=== PATIENT | male | born 1975 | race Caucasian/White ===

== ENCOUNTER → 2016-12-14 | Outpatient (REF) ==
[~2016-12-14] MED LIST: /DULO30CA; /LAMO20TA; AMBI10TA; GEOD60CA; KLON1TAB; LISI10TA4; XANA1TAB2
[2016-12-14 19:21] LABS: CRYSTALS, BODY FLUID NONE SEEN (NONE SEEN)
[2016-12-14 20:31] LABS: SYNOVIAL FLUID COLOR RED (YELLOW); WBC ADVIA BF 1.75; WBC CALC. BF 1750 cells/uL (0-20)
[2016-12-14 20:32] LABS: BF DIFF IF INDICATED? YES (NO); HCT SOURCE RT ELBOW; RBC ADVIA BF 0.08; RBC CALC. BF 80000 (< 10mm3 cells/uL)
[2016-12-14 22:10] LABS: CC BF DIFF EXAM CYTOCENTRIFUGE
== END ==
LOC: M LAB REF 18:13
DX: Z00.00 Encounter for general adult medical examination without abnormal findings (principal)

== ENCOUNTER 2018-07-03 00:51 | Emergency (ER) | payer OTHER, MEDICARE ==
[~2018-07-03] VITALS: Ht 177.8 cm; Wt 90.9 kg
[2018-07-03] MEDS ORDERED: SERO1TAB (01:31)
[2018-07-03] MEDS ORDERED: LISI40TA (01:31)
[2018-07-03] MEDS ORDERED: METO1TAB87 (01:31)
[2018-07-03] MEDS ORDERED: OMEP-221 (01:31)
[2018-07-03] MEDS ORDERED: DULO60CA35 (01:31)
[2018-07-03] MEDS ORDERED: PRAZ2CAP (01:31)
[2018-07-03 01:48] LABS: HEMOGLOBIN 14.8 g/dl (13.5-17.5); MEAN CORPUSCULAR HEMOGLOBIN 30.7 pg (27.0-33.0); MEAN CORPUSCULAR HGB CONC 35.2 g/dl (32.0-36.5); MEAN CORPUSCULAR VOLUME 87.1 fl (80.0-96.0); PLATELET COUNT, AUTOMATED 231 10^3/uL (150-450); RED BLOOD COUNT 4.82 10^6/uL (4.30-6.10); WHITE BLOOD COUNT 7.3 10^3/uL (4.0-10.0)
[2018-07-03 02:23] LABS: ACETAMINOPHEN LEVEL < 2.0 UG/ML (10.0-30.0); ALBUMIN 3.9 GM/DL (3.2-5.2); ALT/SGPT 35 U/L (12-78); BILIRUBIN,DIRECT 0.1 MG/DL (0.0-0.2); BILIRUBIN,TOTAL 0.4 MG/DL (0.2-1.0); BLOOD UREA NITROGEN 7 MG/DL (7-18); CALCIUM LEVEL 8.4 MG/DL (8.5-10.1); CARBON DIOXIDE LEVEL 23 MEQ/L (21-32); CHLORIDE LEVEL 103 MEQ/L (98-107); CREATININE FOR GFR 1.23 MG/DL (0.70-1.30); GLOMERULAR FILTRATION RATE > 60.0 (>60); GLUCOSE, FASTING 89 MG/DL (70-100); POTASSIUM SERUM 4.1 MEQ/L (3.5-5.1); SALICYLATE LEVEL 4.4 MG/DL (5.0-30.0); SODIUM LEVEL 137 MEQ/L (136-145); TOTAL PROTEIN 6.8 GM/DL (6.4-8.2)
[2018-07-03 02:48] LABS: AMPHETAMINES LEVEL URINE NEGATIVE (NEGATIVE); BARBITURATES URINE NEGATIVE (NEGATIVE); BENZODIAZEPINES URINE NEGATIVE (NEGATIVE); CANNABINOIDS URINE POSITIVE (NEGATIVE); COCAINE METABOLITE URINE NEGATIVE (NEGATIVE); METHADONE URINE NEGATIVE (NEGATIVE); OPIATES URINE NEGATIVE (NEGATIVE); PHENCYCLIDINE URINE NEGATIVE (NEGATIVE)
[2018-07-03 03:24] VITALS: BP 146/74
--- NOTE | 2018-07-03 13:24 | ECGEPIP ---
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
[2018-08-05] MEDS ORDERED: SIMV20TA2 PO (21:24)
[2018-08-06] MEDS ORDERED: LEVO25TA5 PO (15:45)
== END 2018-07-03 03:32 | disposition home or self-care (01) ==
LOC: M ED 00:51
DX: F43.0 Acute stress reaction (principal); F99 Mental disorder, not otherwise specified; F17.210 Nicotine dependence, cigarettes, uncomplicated; F12.10 Cannabis abuse, uncomplicated
CPT/HCPCS: 36415; 80048; 80076; 80307; 84443; 85027; 93005; 99284; G0480

== ENCOUNTER 2018-07-31 09:50 | Emergency (ER) | payer OTHER, MEDICARE | END 2018-07-31 11:21 | disposition home or self-care (01) | LOC: M ED 09:50 | DX: Z91.5 Personal history of self-harm (principal) | CPT/HCPCS: 99284 ==

== ENCOUNTER 2018-08-05 21:15 | Emergency (ER) | payer OTHER, MEDICARE ==
[2018-08-05 22:35] LABS: HEMATOCRIT 44.1 % (42.0-52.0); MEAN CORPUSCULAR HEMOGLOBIN 30.6 pg (27.0-33.0); PLATELET COUNT, AUTOMATED 226 10^3/uL (150-450); RED CELL DISTRIBUTION WIDTH 13.5 % (11.5-14.5); WHITE BLOOD COUNT 9.6 10^3/uL (4.0-10.0)
[2018-08-05] MEDS: ALPRAZolam 0.5 MG TAB PO (22:46)
[2018-08-05 22:56] LABS: AMPHETAMINES LEVEL URINE NEGATIVE (NEGATIVE); BARBITURATES URINE NEGATIVE (NEGATIVE); BENZODIAZEPINES URINE NEGATIVE (NEGATIVE); CANNABINOIDS URINE POSITIVE (NEGATIVE); COCAINE METABOLITE URINE NEGATIVE (NEGATIVE); METHADONE URINE NEGATIVE (NEGATIVE); OPIATES URINE NEGATIVE (NEGATIVE); PHENCYCLIDINE URINE NEGATIVE (NEGATIVE)
[2018-08-05 23:19] LABS: ACETAMINOPHEN LEVEL < 2.0 UG/ML (10.0-30.0); ALBUMIN 4.2 GM/DL (3.2-5.2); ALKALINE PHOSPHATASE 100 U/L (45-117); ALT/SGPT 36 U/L (12-78); ANION GAP 5 MEQ/L (8-16); AST/SGOT 20 U/L (7-37); BILIRUBIN,DIRECT < 0.1 MG/DL (0.0-0.2); BILIRUBIN,TOTAL 0.3 MG/DL (0.2-1.0); BLOOD UREA NITROGEN 14 MG/DL (7-18); CALCIUM LEVEL 8.8 MG/DL (8.5-10.1); CARBON DIOXIDE LEVEL 29 MEQ/L (21-32); CHLORIDE LEVEL 103 MEQ/L (98-107); CREATININE FOR GFR 1.25 MG/DL (0.70-1.30); ETHYL ALCOHOL (ETHANOL) < 0.003 % (0.000-0.010); GLOMERULAR FILTRATION RATE > 60.0 (>60); GLUCOSE, FASTING 98 MG/DL (70-100); POTASSIUM SERUM 4.2 MEQ/L (3.5-5.1); SODIUM LEVEL 137 MEQ/L (136-145); TOTAL PROTEIN 7.2 GM/DL (6.4-8.2)
[2018-08-06] MEDS: QUEtiapine FUMARATE 100 MG TAB PO (01:21)
[2018-08-06] MEDS: SIMVASTATIN 20 MG TAB PO (01:21)
[2018-08-06] MEDS: clonazePAM 1 MG TAB PO ×2 (01:22→08:13)
[2018-08-06] MEDS: PRAZOSIN 1 MG CAP PO (01:22)
[2018-08-06 04:10] LABS: KETONE, URINE AUTO RFX NEGATIVE (NEGATIVE); LEUKOCYTE ESTERASE UR AUTO RFX NEGATIVE (NEGATIVE); MUCUS, URINE RFX SMALL (NEGATIVE); NITRITE, URINE AUTO RFX NEGATIVE (NEGATIVE); RBC, URINE AUTO RFX 0 /HPF (0-3); SPECIFIC GRAVITY UR AUTO RFX 1.011 (1.002-1.035); SQUAM EPITHELIAL CELL UR AURFX 0 /HPF (0-6); WBC, URINE AUTO RFX 0 /HPF (0-3)
[2018-08-06] MEDS: OMEPRAZOLE 20 MG CAP PO (08:13)
[2018-08-06] MEDS: DULoxetine 30 MG CAP (CYMBALTA) PO (08:14)
[2018-08-06] MEDS: LISINOPRIL 20 MG TAB PO (08:15)
[2018-08-06] MEDS: LORazepam 2 MG TAB PO (12:43)
[2018-08-06 15:20] LABS: FREE T4 0.71 NG/DL (0.76-1.46)
[2018-08-06] MEDS: LEVOTHYROXINE 25MCG TABLET (0.025MG) PO (16:05)
[2018-08-06] MEDS: METOPROLOL TART 50 MG TAB PO (16:09)
[2018-08-06] MEDS: OLANZapine ORAL DISINTEGRATING TAB 5MG PO (17:09)
== END 2018-08-06 18:27 ==
LOC: M ED 08-06 18:27
DX: F33.9 Major depressive disorder, recurrent, unspecified (principal); R45.851 Suicidal ideations; I10 Essential (primary) hypertension; E03.9 Hypothyroidism, unspecified; S60.221A Contusion of right hand, initial encounter; X58.XXXA Exposure to other specified factors, initial encounter; Y92.89 Other specified places as the place of occurrence of the external cause; Z79.899 Other long term (current) drug therapy; Z79.890 Hormone replacement therapy; F17.210 Nicotine dependence, cigarettes, uncomplicated
CPT/HCPCS: 73130

== ENCOUNTER 2018-11-14 17:36 | Inpatient (IN) | payer OTHER, MEDICARE ==
[~2018-11-14] VITALS: Ht 172.7 cm; Wt 84.1 kg
[~2018-11-14 17:36] MED LIST changes: +DULO60CA35; +LEVO25TA5 PO; +LISI40TA PO; +METO1TAB87 PO; +OMEP-221; +PRAZ2CAP; +SERO1TAB; +SIMV20TA2 PO
[2018-11-14 18:21] LABS: HEMATOCRIT 45.2 % (42.0-52.0); HEMOGLOBIN 15.5 g/dl (13.5-17.5); MEAN CORPUSCULAR HEMOGLOBIN 29.5 pg (27.0-33.0); MEAN CORPUSCULAR HGB CONC 34.3 g/dl (32.0-36.5); MEAN CORPUSCULAR VOLUME 86.1 fl (80.0-96.0); PLATELET COUNT, AUTOMATED 305 10^3/uL (150-450); RED BLOOD COUNT 5.25 10^6/uL (4.30-6.10); WHITE BLOOD COUNT 8.5 10^3/uL (4.0-10.0)
[2018-11-14 18:40] LABS: AMPHETAMINES LEVEL URINE NEGATIVE (NEGATIVE); BARBITURATES URINE NEGATIVE (NEGATIVE); BENZODIAZEPINES URINE NEGATIVE (NEGATIVE); CANNABINOIDS URINE POSITIVE (NEGATIVE); COCAINE METABOLITE URINE NEGATIVE (NEGATIVE); METHADONE URINE NEGATIVE (NEGATIVE); OPIATES URINE NEGATIVE (NEGATIVE); PHENCYCLIDINE URINE NEGATIVE (NEGATIVE)
[2018-11-14 18:50] LABS: ACETAMINOPHEN LEVEL < 2.0 UG/ML (10.0-30.0); ALBUMIN 4.3 GM/DL (3.2-5.2); ALT/SGPT 51 U/L (12-78); BILIRUBIN,DIRECT 0.1 MG/DL (0.0-0.2); BILIRUBIN,TOTAL 0.2 MG/DL (0.2-1.0); BLOOD UREA NITROGEN 16 MG/DL (7-18); CARBON DIOXIDE LEVEL 24 MEQ/L (21-32); CHLORIDE LEVEL 103 MEQ/L (98-107); CREATININE FOR GFR 1.06 MG/DL (0.70-1.30); GLOMERULAR FILTRATION RATE > 60.0 (>60); GLUCOSE, FASTING 93 MG/DL (70-100); POTASSIUM SERUM 4.3 MEQ/L (3.5-5.1); SALICYLATE LEVEL 3.5 MG/DL (5.0-30.0); SODIUM LEVEL 136 MEQ/L (136-145); TOTAL PROTEIN 7.4 GM/DL (6.4-8.2)
[2018-11-14] MEDS ORDERED: OXAZEPAM 15 MG CAP PO ONE (19:00)
[2018-11-14] MEDS ORDERED: MAALOX 30 ML SUSP *UDC PO PRN (20:45)
[2018-11-14] MEDS ORDERED: IBUPROFEN 400 MG TAB PO PRN (20:45)
[2018-11-14] MEDS ORDERED: QUEtiapine FUMARATE 25 MG TAB PO PRN (20:45)
[2018-11-14] MEDS ORDERED: LORazepam 2 MG TAB PO PRN (20:45)
[2018-11-14] MEDS ORDERED: MOM 30ML SUSPENSION UDC PO PRN (20:45)
[2018-11-14] MEDS: THIAMINE 100 MG TAB PO SCH (22:05)
[2018-11-14] MEDS: PRAZOSIN 1 MG CAP PO SCH (22:05)
[2018-11-14] MEDS: clonazePAM 1 MG TAB PO SCH (22:06)
[2018-11-15 06:00] VITALS: BP 136/82
[2018-11-15 06:16] VITALS: BP 148/94
[2018-11-15 07:59] VITALS: BP 142/98
[2018-11-15] MEDS: METOPROLOL TART 25 MG TABLET PO SCH ×2 (09:00→12:24)
[2018-11-15] MEDS: clonazePAM 1 MG TAB PO SCH (09:08)
[2018-11-15] MEDS: THIAMINE 100 MG TAB PO SCH ×2 (09:09→21:00)
[2018-11-15] MEDS: DULoxetine 30 MG CAP (CYMBALTA) PO SCH (09:09)
[2018-11-15] MEDS: MULTIVITAMINS/MINERALS THERAP 1 TAB PO SCH (09:09)
[2018-11-15] MEDS: FOLIC ACID 1 MG TAB PO SCH (09:09)
--- NOTE | 2018-11-15 10:57 | HPEPDOC ---
[facility] Medical History & Physical Date of Admission Nov 14, 2018 History and Physical PCP: [facility] ATTENDING: Dr. Gene Rodas HPI: 43yoM admitted to [facility] for unspecified depressive disorder, being medically examined today. No acute medical complaints today. Denies any fevers, chills, weakness, fatigue, SHEEHAN, CP, SOB, cough, palpitations, abdominal pain, N/V/D or changes in bowel or bladder habits. 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 Tobacco use: 1/2 ppd ETOH: 8-10 drinks yesterday, states none otherwise Illicit Drugs: States receives medical marijuana from [facility] for mood and sleep. IV Drug Use: Denies Tattoos done unprofessionally: Denies FAMHX: Mother: unknown Father: unknown Siblings: unknown Children: none Unexpected deaths due to medical reasons: None. ROS: As noted in HPI, otherwise 11pt ROS of systems reviewed and unremarkable. PE: GEN: 43yoM, appears stated age. Well-nourished, well developed. No acute distress. Alert and oriented x 3. Pleasant, interactive. HEENT: Normocephalic, atraumatic. Pupils are equal, round, and reactive to light. Extraocular movements are intact. No nystagmus appreciated. Sclera are nonicteric. Conjunctiva without injection. Nose midline. Nasal turbinates without bogginess. EACs both patent BL. TMs both visualized and almanza with good cone of light, no bulging or erythema. No facial asymmetry. Moist mucous membranes. Dentition fair. Pharynx pink and moist, no cobblestoning. Neck supple , trachea midline. No lymphadenopathy or thyromegaly appreciated. CHEST: Regular rate and rhythm, +S1, +S2 LUNGS: Clear to auscultation bilaterally. No wheezes, rales, or rhonchi. Breathing appears symmetric and easy. Patient is speaking in full sentences. No accessory muscle use. ABD: Round, soft, non-tender, non-distended. +Bowel sounds throughout. No rebound or guarding. No costovertebral angle tenderness. EXT: Pulses 2+ bilaterally dorsalis pedis and radial. No lower extremity edema appreciated. SKIN: [place], dry, warm. Capillary refill <2sec. No rashes. NEURO: Alert and oriented x 3. Cranial nerves III-XII are intact. No focal deficits appreciated. EKG: SINUS RHYTHM WITH SHORT MA INTERVAL WITH OCCASIONAL VENTRICULAR PREMATURE COMPLEXES NSTTW ABNORMALITY BORDERLINE RIGHT AXIS DEVIATION DECREASED RATE 07/03/18 Electronically Signed On 08-06-2018 20:43:30 EST by Delmy Chen A&P: 43yoM admitted to [facility] for unspecified depressive disorder 1. Psych. Plan per Psychiatry. EKG on file. 2. Nicotine dependence. Patch available. 3. HTN. Continue Lisinopril 40 mg po daily with hold parameters. Continue Metoprolol with hold parameters. 4. HLD. Continue statin. 5. Follow up with PCP on discharge. 6. Substance use. Management per psychiatry. Continue MVI, folic acid and thiamine supplements. 7. Hypothyroid. Continue supplement. TSH WNL. 8. GERD. Continue prilosec 40 mg po daily. 9. Staff member Sonya SMALLS present throughout exam. Vital Signs Vital Signs Date Time Temp Pulse Resp B/P (MAP) Pulse Ox O2 Delivery O2 Flow Rate FiO2 11/15/18 07:59 87 142/98 11/15/18 06:16 99.9 18 11/14/18 20:39 96 Room Air Laboratory Data Labs 24H Laboratory Tests 2 11/14/18 17:46: Nucleated Red Blood Cells % (auto) 0.0, Anion Gap 9, Glomerular Filtration Rate > 60.0, Calcium Level 9.0, Aspartate Amino Transf (AST/SGOT) 29, Alanine Aminotransferase (ALT/SGPT) 51, Alkaline Phosphatase 121H, Total Bilirubin 0.2, Direct Bilirubin 0.1, Total Protein 7.4, Albumin 4.3, Albumin/Globulin Ratio 1.39, Thyroid Stimulating Hormone (TSH) 2.030, Salicylates Level 3.5L, Urine Amphetamines Screen NEGATIVE, Urine Benzodiazepines Screen NEGATIVE, Urine Opiates Screen NEGATIVE, Urine Methadone Screen NEGATIVE, Acetaminophen Level < 2.0L, Urine Barbiturates Screen NEGATIVE, Urine Phencyclidine Screen NEGATIVE, Urine Cocaine Metabolite Screen NEGATIVE, Urine Cannabinoids Screen POSITIVEH, Ethyl Alcohol Level 0.140H CBC/BMP Laboratory Tests 3/5/19 17:46 Red Blood Count 5.25, Mean Corpuscular Volume 86.1, Mean Corpuscular Hemoglobin 29.5, Mean Corpuscular Hemoglobin Concent 34.3, Red Cell Distribution Width 13.5 Home Medications Scheduled Levothyroxine Sodium (Synthroid) 25 Mcg Tab, 1 TAB PO DAILY Simvastatin (Simvastatin) 20 Mg Tab, 20 MG PO QPM Miscellaneous Medications (Duloxetine Hydrocloride) 60 Mg Cap, 120 MG Clonazepam (Klonopin) 1 Mg Tab Lisinopril (Lisinopril) 40 Mg Tab Metoprolol Tartrate (Metoprolol Tartrate) 25 Mg Tab Omeprazole (Omeprazole Dr) 40 Mg Cap Prazosin Hcl (Prazosin HCl) 2 Mg Cap Quetiapine Fumerate (Seroquel) 100 Mg Tab, 100 MG Allergies Coded Allergies: Acetaminophen (Verified Adverse Reaction, Unknown, cannot take due to prior addiction, 08/05/18) Hydrocodone (Verified Adverse Reaction, Unknown, cannot take due to prior addiction, 08/05/18) Candy Bliss Nov 15, 2018 10:57
[2018-11-15] MEDS ORDERED: PRAZ2CAP PO (11:28)
[2018-11-15] MEDS ORDERED: MELO15TA28 PO (11:28)
[2018-11-15] MEDS ORDERED: BACL10TA2 PO (11:28)
[2018-11-15] MEDS ORDERED: OMEP-221 PO (11:28)
[2018-11-15] MEDS ORDERED: D31000CA4 PO (11:28)
[2018-11-15] MEDS ORDERED: SERO1TAB2 PO (11:28)
[2018-11-15] MEDS ORDERED: CLON0.5T8 PO (11:28)
[2018-11-15] MEDS ORDERED: ROSU40TA3 PO (11:28)
[2018-11-15] MEDS ORDERED: PARO40TA3 PO (11:28)
[2018-11-15] MEDS ORDERED: IBUP-1022 PO (11:29)
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
[2018-11-15] MEDS ORDERED: OLANZapine ORAL DISINTEGRATING TAB 5MG PO PRN (11:45)
[2018-11-15] MEDS: OMEPRAZOLE 20 MG CAP PO SCH ×2 (12:46→21:00)
[2018-11-15] MEDS: hydrOXYzine 50 MG TAB PO PRN (17:55)
[2018-11-15 17:58] VITALS: BP 148/98
[2018-11-15 18:25] VITALS: BP 148/98
[2018-11-15] MEDS ORDERED: diphenhydrAMINE INJ 50MG/ML VIAL (J1200) IM STA (19:34)
[2018-11-15] MEDS ORDERED: chlorproMAZINE INJ 50MG/2ML AMP (J3230) IM STA (19:34)
[2018-11-15] MEDS ORDERED: LORazepam 2 MG/ML VIAL (J2060) IM STA (19:34)
[2018-11-15] MEDS: PRAZOSIN 1 MG CAP PO SCH (21:00)
[2018-11-15] MEDS ORDERED: SIMVASTATIN 20 MG TAB PO SCH (21:00)
[2018-11-15] MEDS ORDERED: ROSUVASTATIN 10 MG TAB (CRESTOR) PO SCH (21:00)
[2018-11-15] MEDS ORDERED: LISINOPRIL 20 MG TAB PO SCH (21:00)
[2018-11-15] MEDS ORDERED: QUEtiapine FUMARATE 200 MG TAB PO SCH (21:00)
[2018-11-16] MEDS ORDERED: LEVOTHYROXINE 25MCG TABLET (0.025MG) PO SCH (06:00)
[2018-11-16] MEDS: hydrOXYzine 50 MG TAB PO PRN (06:11)
[2018-11-16 06:44] VITALS: BP 151/98
[2018-11-16] MEDS: MULTIVITAMINS/MINERALS THERAP 1 TAB PO SCH (08:08)
[2018-11-16] MEDS: FOLIC ACID 1 MG TAB PO SCH (08:08)
[2018-11-16] MEDS: DULoxetine 30 MG CAP (CYMBALTA) PO SCH (08:08)
[2018-11-16] MEDS: OMEPRAZOLE 20 MG CAP PO SCH (08:08)
[2018-11-16] MEDS: THIAMINE 100 MG TAB PO SCH (08:08)
[2018-11-16 08:09] VITALS: BP 148/98
[2018-11-16] MEDS: METOPROLOL TART 25 MG TABLET PO SCH (08:09)
--- NOTE | 2018-11-16 08:57 | REP ---
RIGHT HAND SERIES: Four views of the right hand are performed. I see no acute fracture or dislocation. There is an old healed fracture of the proximal fifth metacarpal. Subchondral cystic changes are seen in the distal radius in the scaphoid. IMPRESSION: No acute fracture or dislocation. Electronically Signed by Og Bray MD 11/16/2018 04:58 P
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
[2018-11-16] MEDS ORDERED: DULO30CA PO (10:34)
[2018-11-16] MEDS ORDERED: ARIP5TA PO (10:34)
[2018-11-16] MEDS ORDERED: QUET1TAB9 PO (10:34)
[2018-11-16] MEDS ORDERED: PRAZ2CAP PO (10:34)
[2018-11-16] MEDS ORDERED: ZYPR10TA PO (10:35)
== END 2018-11-16 11:50 | disposition home or self-care (01) | DRG 882 ==
LOC: M ED 17:36 → M ED INP 20:33 → M PSY 21:21
PROVIDERS: ADMIT Psychiatry & Neurology Psychiatry; ATTEND Psychiatry & Neurology Psychiatry
DX: F43.10 Post-traumatic stress disorder, unspecified (principal); F10.10 Alcohol abuse, uncomplicated; F13.90 Sedative, hypnotic, or anxiolytic use, unspecified, uncomplicated; Z79.899 Other long term (current) drug therapy; Z88.5 Allergy status to narcotic agent; Z88.8 Allergy status to other drugs, medicaments and biological substances; K21.9 Gastro-esophageal reflux disease without esophagitis; F41.9 Anxiety disorder, unspecified; I10 Essential (primary) hypertension; G47.00 Insomnia, unspecified; E03.9 Hypothyroidism, unspecified; F17.200 Nicotine dependence, unspecified, uncomplicated

== ENCOUNTER → 2022-02-01 | Outpatient (REF) | payer MEDICARE, OTHER ==
[~2022-02-01] MED LIST changes: -/DULO30CA; -/LAMO20TA; +ARIP1TAB6 PO; +BACL10TA2 PO; +CLON0.5T2 PO; +CYMB1CAP5; +D31000CA4 PO; +DULO30CA9 PO; +IBUP-1022 PO; +LAMI1TAB9; -LISI40TA PO; +LISI40TA4 PO; +MELO15TA28 PO; -OMEP-221; +OMEP40CA5; +OMEP40CA5 PO; +PARO40TA3 PO; +PRAZ2CAP PO; +QUET200T2 PO; +ROSU40TA4 PO; +SERO1TAB2 PO; -SIMV20TA2 PO; +SIMV20TA22 PO; +ZYPR10TA PO
== END ==
LOC: M RAD 09:00 → EDSTATUS 02-14 14:10
PROVIDERS: ATTEND Family Medicine
DX: M54.50 Low back pain, unspecified (principal)

== ENCOUNTER → 2022-03-02 | Outpatient (CLI) | payer MEDICARE, OTHER ==
[2022-03-02 10:35] LABS: BASO # 0.1 10^3/uL (0.0-0.2); BASO % 0.9 % (0.0-1.0); EOS # 0.1 10^3/uL (0.0-0.5); HEMATOCRIT 44.8 % (42.0-52.0); HEMOGLOBIN 14.9 g/dl (13.5-17.5); LYMPH # 1.5 10^3/uL (1.5-5.0); LYMPH % 23.6 % (24.0-44.0); MEAN CORPUSCULAR HEMOGLOBIN 30.3 pg (27.0-33.0); MEAN CORPUSCULAR HGB CONC 33.3 g/dl (32.0-36.5); MEAN CORPUSCULAR VOLUME 91.1 fl (80.0-96.0); MONO # 0.6 10^3/uL (0.0-0.8); MONO % 9.8 % (2.0-8.0); NEUTROPHILS # 4.1 10^3/uL (1.5-8.5); NEUTROPHILS % 63.2 % (36.0-66.0); PLATELET COUNT, AUTOMATED 376 10^3/uL (150-450); RED BLOOD COUNT 4.92 10^6/uL (4.30-6.10); WHITE BLOOD COUNT 6.5 10^3/uL (4.0-10.0)
[2022-03-02 10:58] LABS: ERYTHROCYTE SEDIMENTATION RATE 2 mm/hr (0-15)
[2022-03-02 11:57] LABS: ALBUMIN 4.2 GM/DL (3.2-5.2); ALT/SGPT 71 U/L (12-78); BILIRUBIN,TOTAL 0.3 MG/DL (0.2-1.0); BLOOD UREA NITROGEN 10 MG/DL (7-18); CALCIUM LEVEL 9.6 MG/DL (8.5-10.1); CARBON DIOXIDE LEVEL 28 MEQ/L (21-32); CHLORIDE LEVEL 104 MEQ/L (98-107); CREATININE FOR GFR 0.93 MG/DL (0.70-1.30); GLOMERULAR FILTRATION RATE > 60.0 (>60); GLUCOSE, FASTING 92 MG/DL (70-100); HEPATITIS C VIRUS ABY INDEX 0.1 INDEX (<0.8); POTASSIUM SERUM 4.4 MEQ/L (3.5-5.1); SODIUM LEVEL 140 MEQ/L (136-145); TOTAL PROTEIN 6.9 GM/DL (6.4-8.2)
== END ==
LOC: M PLALAB 08:30
PROVIDERS: ATTEND Internal Medicine Infectious Disease
DX: L81.8 Other specified disorders of pigmentation (principal); M46.20 Osteomyelitis of vertebra, site unspecified

== ENCOUNTER → 2022-03-24 | Outpatient (CLI) | payer OTHER | LOC: M PLAIMG 06:30 | PROVIDERS: ATTEND Family Medicine | DX: M43.8X6 Other specified deforming dorsopathies, lumbar region (principal); M54.50 Low back pain, unspecified; Z96.9 Presence of functional implant, unspecified ==

== ENCOUNTER 2022-04-02 13:23 | Emergency (ER) | payer OTHER ==
[~2022-04-02] VITALS: Ht 167.6 cm; Wt 71.2 kg
[2022-04-02 13:24] VITALS: BP 154/92
== END 2022-04-02 17:57 | disposition left against medical advice (07) ==
LOC: M ED 13:23
DX: Z53.21 Procedure and treatment not carried out due to patient leaving prior to being seen by health care provider (principal)

== ENCOUNTER → 2023-01-12 | Outpatient (REF) | payer OTHER | LOC: M SFHCDERM 13:10 | PROVIDERS: ATTEND Nurse Practitioner Family | DX: L30.9 Dermatitis, unspecified (principal) ==

== ENCOUNTER 2023-02-11 00:59 | Emergency (ER) | payer MEDICARE, OTHER ==
[~2023-02-11] VITALS: Ht 167.6 cm; Wt 72.9 kg
[2023-02-11] MEDS ORDERED: MORPHINE 10 MG/ML 1ML VIAL IM ONE (02:00)
[2023-02-11 02:05] LABS: HEMATOCRIT 45.7 % (42.0-52.0); MEAN CORPUSCULAR HEMOGLOBIN 28.1 pg (27.0-33.0); MEAN CORPUSCULAR HGB CONC 32.8 g/dl (32.0-36.5); MEAN CORPUSCULAR VOLUME 85.6 fl (80.0-96.0); PLATELET COUNT, AUTOMATED 331 10^3/uL (150-450); RED BLOOD COUNT 5.34 10^6/uL (4.30-6.10); WHITE BLOOD COUNT 8.7 10^3/uL (4.0-10.0)
[2023-02-11 02:16] LABS: ETHYL ALCOHOL (ETHANOL) 0.095 % (0.000-0.010)
[2023-02-11 02:18] LABS: ACETAMINOPHEN LEVEL < 2.0 UG/ML (10.0-20.0); SALICYLATE LEVEL < 3.0 MG/DL (<30)
[2023-02-11 02:23] LABS: ALBUMIN 4.5 G/DL (3.2-5.2); ALKALINE PHOSPHATASE 194 U/L (46-116); ALT/SGPT 54 U/L (7.0-40); AST/SGOT 16 U/L (<34); BILIRUBIN,DIRECT < 0.1 MG/DL (<0.4); BILIRUBIN,TOTAL 0.3 MG/DL (0.3-1.2); BLOOD UREA NITROGEN 12 MG/DL (9-23); CALCIUM LEVEL 9.3 MG/DL (8.5-10.1); CARBON DIOXIDE LEVEL 25 MMOL/L (20-31); CHLORIDE LEVEL 102 MMOL/L (98-107); CREATININE FOR GFR 0.84 MG/DL (0.70-1.30); GLOMERULAR FILTRATION RATE > 60.0 (>60); GLUCOSE, FASTING 83 MG/DL (60-100); POTASSIUM SERUM 3.8 MMOL/L (3.5-5.1); SODIUM LEVEL 137 MMOL/L (136-145); THYROID STIMULATING HORMONE 4.714 uIU/ML (0.55-4.78); TOTAL PROTEIN 7.6 G/DL (5.7-8.2)
[2023-02-11 02:33] LABS: BARBITURATES URINE NEGATIVE (NEGATIVE); BENZODIAZEPINES URINE NEGATIVE (NEGATIVE)
[2023-02-11 02:34] LABS: COCAINE METABOLITE URINE NEGATIVE (NEGATIVE); METHADONE URINE NEGATIVE (NEGATIVE); OPIATES URINE NEGATIVE (NEGATIVE); PHENCYCLIDINE URINE NEGATIVE (NEGATIVE)
[2023-02-11 02:36] LABS: CANNABINOIDS URINE POSITIVE (NEGATIVE)
[2023-02-11 02:42] LABS: APPEARANCE, URINE CLEAR (CLEAR); BACTERIA, URINE AUTO NEGATIVE (NEGATIVE); BILIRUBIN, URINE AUTO NEGATIVE (NEGATIVE); BLOOD, URINE BLOOD NEGATIVE (NEGATIVE); COLOR, URINE STRAW (YELLOW); GLUCOSE, URINE (UA) AUTO NEGATIVE (NEGATIVE); KETONE, URINE AUTO NEGATIVE (NEGATIVE); LEUKOCYTE ESTERASE, URINE AUTO NEGATIVE (NEGATIVE); NITRITE, URINE AUTO NEGATIVE (NEGATIVE); PROTEIN, URINE AUTO NEGATIVE (NEGATIVE); RBC, URINE AUTO 0 /HPF (0-3); SPECIFIC GRAVITY URINE AUTO 1.003 (1.002-1.035); SQUAMOUS EPITHELIAL CELL UR AU 0 /HPF (0-6); UROBILINOGEN, URINE AUTO 0.2 mg/dL (0.0-2.0); WBC, URINE AUTO 0 /HPF (0-3)
[2023-02-11 03:00] LABS: AMPHETAMINES LEVEL URINE NEGATIVE (NEGATIVE)
[2023-02-11] MEDS ORDERED: **hydrALAZINE HCL** 25 MG TAB PO ONE (03:35)
[2023-02-11 04:00] VITALS: BP 168/102
[2023-02-11] MEDS ORDERED: LISI40TA4 PO (04:05)
[2023-02-11] MEDS ORDERED: MUPI2OI EXT (04:05)
[2023-02-11] MEDS ORDERED: IBUP1TAB7 PO (04:05)
[2023-02-11] MEDS ORDERED: MAGN400T2 PO (04:05)
[2023-02-11] MEDS ORDERED: DULO1CAP6 PO (04:05)
[2023-02-11] MEDS ORDERED: CYCL10TA20 PO (04:05)
[2023-02-11] MEDS ORDERED: LIDO5OIN19 EXT (04:05)
[2023-02-11] MEDS ORDERED: VITA100093 PO (04:05)
[2023-02-11] MEDS ORDERED: ADDE10TA PO (04:05)
[2023-02-11] MEDS ORDERED: HOME MED LIST COMPLETE! XX SCH (04:10)
[2023-02-11] MEDS ORDERED: PERCOCET 5MG/325MG TAB PO ONE ×2 (06:25→10:00)
[2023-02-11] MEDS ORDERED: LIDOCAINE 5% (LIDODERM) PATCH TD ONE (08:00)
[2023-02-11] MEDS ORDERED: IBUPROFEN 400MG TAB PO PRN (08:00)
[2023-02-11] MEDS ORDERED: lisinopriL 40MG TAB PO SCH (09:00)
[2023-02-11] MEDS ORDERED: VITAMIN D 1,000 INTERNATIONAL UNITS TABLET PO SCH (09:00)
[2023-02-11] MEDS ORDERED: DULoxetine 30MG CAPSULE (CYMBALTA) PO SCH (09:00)
[2023-02-11 11:16] VITALS: BP 168/120; TEMP 96.9; O2SAT 99
== END 2023-02-11 11:21 ==
LOC: M ED 00:59
DX: R45.851 Suicidal ideations (principal); E78.5 Hyperlipidemia, unspecified; I10 Essential (primary) hypertension; K21.9 Gastro-esophageal reflux disease without esophagitis; F32.A Depression, unspecified; F41.9 Anxiety disorder, unspecified; F90.9 Attention-deficit hyperactivity disorder, unspecified type; F12.10 Cannabis abuse, uncomplicated; Z79.899 Other long term (current) drug therapy

== ENCOUNTER 2024-05-08 05:35 | Emergency (ER) | payer OTHER ==
[~2024-05-08] VITALS: Ht 170.2 cm; Wt 63.6 kg
[~2024-05-08 05:35] MED LIST changes: +ADDE10TA PO; +CYCL10TA20 PO; +DULO1CAP6 PO; +GABA-282 PO; +IBUP1TAB7 PO; +LIDO5OIN19 EXT; +MAGN400T2 PO; +METO1TAB7 PO; +MUPI2OI EXT; +PRAV40TA2 PO; +PREG50CA3 PO; -ROSU40TA4 PO; +ROSU40TA81 PO; +VITA100093 PO; +VITA200035 PO
[2024-05-08] MEDS: PREGABALIN 50 MG CAP (LYRICA) PO ONE (07:26)
[2024-05-08 08:09] LABS: HEMATOCRIT 42.6 % (42.0-52.0); HEMOGLOBIN 14.4 g/dl (13.5-17.5); MEAN CORPUSCULAR HEMOGLOBIN 30.9 pg (27.0-33.0); MEAN CORPUSCULAR HGB CONC 33.8 g/dl (32.0-36.5); MEAN CORPUSCULAR VOLUME 91.4 fl (80.0-96.0); PLATELET COUNT, AUTOMATED 216 10^3/uL (150-450); RED BLOOD COUNT 4.66 10^6/uL (4.30-6.10); WHITE BLOOD COUNT 7.3 10^3/uL (4.0-10.0)
[2024-05-08] MEDS: MORPHINE 4 MG/ML 1ML VIAL IM ONE (08:09)
[2024-05-08 08:34] LABS: ETHYL ALCOHOL (ETHANOL) < 0.003 % (0.000-0.010)
[2024-05-08] MEDS ORDERED: METH5TA PO (08:34)
[2024-05-08] MEDS ORDERED: PRAV40TA2 PO (08:34)
[2024-05-08] MEDS ORDERED: METO1TAB33 PO (08:34)
[2024-05-08 08:35] LABS: SALICYLATE LEVEL < 3.0 MG/DL (<30)
[2024-05-08] MEDS ORDERED: HOME MED LIST COMPLETE! XX SCH (08:35)
[2024-05-08 08:36] LABS: ALBUMIN 4.4 G/DL (3.2-5.2); ALKALINE PHOSPHATASE 132 U/L (46-116); ALT/SGPT 30 U/L (7.0-40); AST/SGOT 25 U/L (<34); BILIRUBIN,DIRECT 0.2 MG/DL (<0.4); BILIRUBIN,TOTAL 0.6 MG/DL (0.3-1.2); BLOOD UREA NITROGEN 11 MG/DL (9-23); CARBON DIOXIDE LEVEL 24 MMOL/L (20-31); CHLORIDE LEVEL 108 MMOL/L (98-107); CREATININE FOR GFR 1.12 MG/DL (0.70-1.30); GLOMERULAR FILTRATION RATE > 60.0 (>60); GLUCOSE, FASTING 111 MG/DL (60-100); POTASSIUM SERUM 3.7 MMOL/L (3.5-5.1); SODIUM LEVEL 141 MMOL/L (136-145); TOTAL PROTEIN 7.4 G/DL (5.7-8.2)
[2024-05-08 08:37] LABS: THYROID STIMULATING HORMONE 2.302 uIU/ML (0.55-4.78)
[2024-05-08 11:51] VITALS: BP 149/95; TEMP 97; O2SAT 100
== END 2024-05-08 11:45 | disposition home or self-care (01) ==
LOC: M ED 05:35
DX: F32.A Depression, unspecified (principal); G89.29 Other chronic pain; I10 Essential (primary) hypertension; K21.9 Gastro-esophageal reflux disease without esophagitis; E78.5 Hyperlipidemia, unspecified; F43.10 Post-traumatic stress disorder, unspecified; F11.10 Opioid abuse, uncomplicated; Z79.899 Other long term (current) drug therapy

== ENCOUNTER 2024-07-26 13:36 | Emergency (ER) | payer OTHER ==
[~2024-07-26 13:36] MED LIST changes: +GABA-1172 PO; -GABA-282 PO; +METH5TA PO; +METO1TAB33 PO
[2024-07-26] MEDS ORDERED: MORP15TA2 PO (14:31)
[2024-07-26] MEDS ORDERED: VITA200012 PO (14:31)
[2024-07-26 14:37] LABS: HEMATOCRIT 40.3 % (42.0-52.0); HEMOGLOBIN 13.8 g/dl (13.5-17.5); MEAN CORPUSCULAR HEMOGLOBIN 30.8 pg (27.0-33.0); MEAN CORPUSCULAR HGB CONC 34.2 g/dl (32.0-36.5); PLATELET COUNT, AUTOMATED 239 10^3/uL (150-450); RED BLOOD COUNT 4.48 10^6/uL (4.30-6.10); WHITE BLOOD COUNT 7.5 10^3/uL (4.0-10.0)
[2024-07-26 14:54] LABS: BARBITURATES URINE NEGATIVE (NEGATIVE)
[2024-07-26 14:55] LABS: AMPHETAMINES LEVEL URINE NEGATIVE (NEGATIVE); BENZODIAZEPINES URINE NEGATIVE (NEGATIVE); CANNABINOIDS URINE POSITIVE (NEGATIVE); COCAINE METABOLITE URINE NEGATIVE (NEGATIVE); METHADONE URINE NEGATIVE (NEGATIVE); OPIATES URINE POSITIVE (NEGATIVE); PHENCYCLIDINE URINE NEGATIVE (NEGATIVE)
[2024-07-26 14:57] LABS: ETHYL ALCOHOL (ETHANOL) 0.029 % (0.000-0.010)
[2024-07-26 14:58] LABS: SALICYLATE LEVEL < 3.0 MG/DL (<30)
[2024-07-26 14:59] LABS: ALBUMIN 4.5 G/DL (3.2-5.2); ALKALINE PHOSPHATASE 116 U/L (40-129); ALT/SGPT 104 U/L (7.0-40); AST/SGOT 33 U/L (<34); BILIRUBIN,DIRECT 0.1 MG/DL (<0.4); BILIRUBIN,TOTAL 0.3 MG/DL (0.3-1.2); BLOOD UREA NITROGEN 12 MG/DL (9-23); CALCIUM LEVEL 10.3 MG/DL (8.5-10.1); CARBON DIOXIDE LEVEL 26 MMOL/L (20-31); CHLORIDE LEVEL 103 MMOL/L (98-107); CREATININE FOR GFR 0.96 MG/DL (0.70-1.30); GLOMERULAR FILTRATION RATE > 60.0 (>60); GLUCOSE, FASTING 77 MG/DL (60-100); POTASSIUM SERUM 3.7 MMOL/L (3.5-5.1); SODIUM LEVEL 138 MMOL/L (136-145); TOTAL PROTEIN 7.6 G/DL (5.7-8.2)
[2024-07-26 15:00] LABS: THYROID STIMULATING HORMONE 1.716 uIU/ML (0.55-4.78)
[2024-07-26] MEDS ORDERED: HOME MED LIST COMPLETE! XX SCH (15:10)
[2024-07-26] MEDS: MORPHINE 30 MG TAB **MSIR PO STA ×2 (17:49→23:40)
[2024-07-26] MEDS: PRAVASTATIN 20 MG TAB PO SCH (21:00)
[2024-07-26] MEDS: PREGABALIN 50 MG CAP (LYRICA) PO SCH (21:01)
[2024-07-26 21:23] LABS: RSV AMPLIFICATION NEGATIVE (NEGATIVE)
[2024-07-26] MEDS: METOPROLOL SUCC (TopROL XL) 100MG *XL* TAB PO SCH (22:26)
[2024-07-26 23:40] VITALS: BP 140/90; TEMP 97.2; O2SAT 100
[2024-07-27] MEDS ORDERED: lisinopriL 40MG TAB PO SCH (09:00)
[2024-07-27] MEDS ORDERED: OMEPRAZOLE 20MG CAP PO SCH (09:00)
[2024-07-27] MEDS ORDERED: METOPROLOL SUCC (TopROL XL) 100MG *XL* TAB PO SCH (09:00)
[2024-07-27] MEDS ORDERED: VITAMIN D 1,000 INTERNATIONAL UNITS TABLET PO SCH (09:00)
== END 2024-07-27 00:05 | disposition short-term general hospital (02) ==
LOC: M ED 13:36
DX: R45.851 Suicidal ideations (principal); F32.A Depression, unspecified; I10 Essential (primary) hypertension; K21.9 Gastro-esophageal reflux disease without esophagitis; F41.9 Anxiety disorder, unspecified; F12.10 Cannabis abuse, uncomplicated; F10.10 Alcohol abuse, uncomplicated; Z79.899 Other long term (current) drug therapy

== ENCOUNTER 2025-04-22 10:14 | Emergency (ER) | payer OTHER ==
[~2025-04-22] VITALS: Ht 167.6 cm; Wt 65.9 kg
[~2025-04-22 10:14] MED LIST changes: +LISI40TA10 PO; -LISI40TA4 PO; +MORP15TA2 PO; -PRAV40TA2 PO; +PRAV40TA85 PO; +VITA200012 PO
[2025-04-22 13:12] VITALS: BP 120/90; TEMP 97.6; O2SAT 18
== END 2025-04-22 13:21 | disposition home or self-care (01) ==
LOC: M ED 10:14
DX: S13.4XXA Sprain of ligaments of cervical spine, initial encounter (principal); S33.5XXA Sprain of ligaments of lumbar spine, initial encounter; S39.012A Strain of muscle, fascia and tendon of lower back, initial encounter; V49.60XA Unspecified car occupant injured in collision with unspecified motor vehicles in traffic accident, initial encounter; Y92.9 Unspecified place or not applicable; Y93.9 Activity, unspecified; Y99.9 Unspecified external cause status; G89.29 Other chronic pain; M54.9 Dorsalgia, unspecified; F17.200 Nicotine dependence, unspecified, uncomplicated; Z79.899 Other long term (current) drug therapy

== ENCOUNTER 2025-04-22 14:57 | Emergency (ER) | payer OTHER | END 2025-04-22 15:20 | disposition left against medical advice (07) | LOC: M ED 14:57 | DX: Z53.21 Procedure and treatment not carried out due to patient leaving prior to being seen by health care provider (principal) ==